=== PATIENT | female | born 2000 | race Two or more races ===

== ENCOUNTER 2021-11-14 00:34 | Emergency (ER) | payer MEDICAID ==
[~2021-11-14] VITALS: Ht 154.9 cm; Wt 49.9 kg
--- NOTE | 2021-11-14 01:00 | NUR ---
[facility] AND [employer]. TO ER BED 11. AAOX4. NOT IN RESP DISTRESS. AMBUALTORY. BROUGHT IN FOR SUICIDAL ATTEMPT. PER EMS REPORT, PT WAS CALLED IN BY HER PARTNER FOR SUICIDAL IDEATION. UPON WALKING OUT OF THE [facility]. [facility]OWARDS [facility] AND ATTEMTED TO JUMP OFF. PT WAS ONE LEG OVER AND WAS TACKLED DOWN BY THE EMS. PT VERBALIZED THAT SHE IS FEELING VERY OVERWHELMED. PT HAS GIVEN 2 MONTHS AGO. MD WAS AT THE BEDSIDE FOR EVAL. PT GOWN, BELONGING TO LOCKER AND SITTER AT BEDSIDE. URINE WAS COLLECTED AND COVID SWAB DONE. PHLEB AT BEDSIDE
[2021-11-14 01:10] LABS: BASOPHILS % (AUTO) 0.3 % (0.0-2.0); HEMATOCRIT 42 % (33-45); HEMOGLOBIN 14.1 g/dL (11.5-14.8); LYMPHOCYTES # (AUTO) 2.5 K/uL (0.8-4.8); LYMPHOCYTES % (AUTO) 40.1 % (20.0-44.0); MEAN CORPUSCULAR HGB CONC 34 g/dl (31.0-36.0); MEAN CORPUSCULAR VOLUME 90 fL (82-100); MONOCYTES # (AUTO) 0.5 K/uL (0.1-1.30); MONOCYTES % (AUTO) 7.5 % (2.0-12.0); NEUTROPHILS # (AUTO) 3.2 K/uL (1.8-8.9); NEUTROPHILS % (AUTO) 51.1 % (43.0-81.0); PLATELET COUNT (AUTO) 207 K/uL (150-450); WHITE BLOOD COUNT (AUTO) 6.3 K/uL (4.3-11.0)
[2021-11-14 01:22] LABS: BILIRUBIN,URINE NEGATIVE (NEGATIVE); CALCIUM, SERUM 8.4 mg/dL (8.5-10.1); CARBON DIOXIDE 27 mmol/L (21-32); CHLORIDE 106 mmol/L (98-107); COLOR,URINE YELLOW (YELLOW); CREATININE 0.9 mg/dL (0.6-1.3); GLUCOSE 116 mg/dL (74-106); LEUKOCYTE ESTERASE ,URINE NEGATIVE (NEGATIVE); NITRITE, URINE NEGATIVE (NEGATIVE); POTASSIUM 3.5 mmol/L (3.5-5.1); PROTEIN,URINE NEGATIVE (NEGATIVE); SODIUM SERUM 141 mmol/L (136-145); UGLUCOSE NEGATIVE (NEGATIVE); UREA NITROGEN, BLOOD 16 mg/dL (7-18); UROBILINOGEN,URINE 0.2 EU/dL (0.2)
[2021-11-14 01:28] LABS: ALANINE AMINOTRANSFERASE 79 U/L (12-78); ALBUMIN 4.1 g/dL (3.4-5.0); ALCOHOL, BLOOD < 3 mg/dL (0-0); ALKALINE PHOSPHATASE 124 U/L (46-116); ASPARTATE AMINOTRANSFERASE 27 U/L (15-37); BILIRUBIN,DIRECT 0.1 mg/dL (0.0-0.2); BILIRUBIN,TOTAL 0.6 mg/dL (0.2-1.0); TOTAL PROTEIN, SERUM 7.7 g/dL (6.4-8.2)
[2021-11-14 01:31] LABS: ACETAMINOPHEN 0 ug/ml (10-30)
[2021-11-14 01:32] LABS: BACTERIA,URINE Few /HPF (None Seen); RBC,URINE 0-2 /HPF (0-2); SQUAMOUS EPITHELIAL CELL,UR Few /HPF (None Seen)
[2021-11-14 01:34] LABS: MUCUS,URINE Few /LPF (None Seen)
--- NOTE | 2021-11-14 01:35 | NUR ---
[facility] ([facility]) - [phone]
--- NOTE | 2021-11-14 01:56 | NUR ---
ANGELITA ALAS CALLED AND WILL BE COMING.
--- NOTE | 2021-11-14 02:27 | NUR ---
EQUIPMENT HIRE MANAGER AT BEDSIDE
--- NOTE | 2021-11-14 03:23 | NUR ---
Pt is psychiatrically and medically cleared for discharge.
--- NOTE | 2021-11-14 03:24 | NUR ---
Patient discharged to home in stable condition. Written and verbal after care instructions given. Patient verbalizes understanding of instruction. Pt ambulatory with a steady gait. Pt is released under the care of her fiance. Pt and her fiance verbalized back that they will going for a follow up with Adore Cedeño tomorrow morning.
[2021-11-14 03:26] VITALS: BP 118/68
== END 2021-11-14 03:28 | disposition home or self-care (01) ==
LOC: ER 00:37
DX: T14.91XA Suicide attempt, initial encounter (principal); Y92.038 Other place in apartment as the place of occurrence of the external cause; O99.345 Other mental disorders complicating the puerperium; F53.0 Postpartum depression; Z20.822 Contact with and (suspected) exposure to COVID-19
CPT/HCPCS: 36415; 80048; 80076; 80143; 80307; 80320; 81001; 85025; 87086; 87426; 99285; C9803; G0480